=== PATIENT | male | born 2000 ===

== ENCOUNTER 2022-05-27 16:09 | Emergency (ER) | payer OTHER ==
[~2022-05-27] VITALS: Ht 167.6 cm; Wt 104.3 kg
[~2022-05-27 16:09] MED LIST: Amoxicillin500 MG PO; ERYT.5TO OD; HYDACE5325 PO
[2022-05-27] MEDS ORDERED: Cymbalta20 MG PO (16:35)
[2022-05-27] MEDS ORDERED: PANT20 PO (16:35)
[2022-05-27] MEDS ORDERED: Norco 7.5-3251 EACH PO (17:25)
== END 2022-05-27 17:30 | disposition home or self-care (01) ==
LOC: ER 16:09
DX: S82.852A Displaced trimalleolar fracture of left lower leg, initial encounter for closed fracture (principal); W18.31XA Fall on same level due to stepping on an object, initial encounter; Z79.899 Other long term (current) drug therapy
CPT/HCPCS: 36415; 73590; 73610; J1170; J1885; J2704; J7030

== ENCOUNTER 2022-06-07 12:27 | Day surgery (SDC) | payer OTHER ==
[~2022-06-07] VITALS: Ht 182.9 cm; Wt 111.2 kg
[~2022-06-07 12:27] MED LIST changes: +Cymbalta20 MG PO; +Norco 7.5-3251 EACH PO; +PANT20 PO
--- NOTE | 2022-06-07 14:41 | NUR ---
Patient to [facility] via wheelchair. Patient confirms NPO status and agrees with scheduled surgery. Pre-Op teaching done. Pt verbalizes understanding. Lungs clear T/O to Auscultation. Patient States Post-Procedure ride home has been arranged. Patient states he did not receive chlorhexidine scrubs from provider. No shower/scrubs completed.
--- NOTE | 2022-06-07 14:53 | NUR ---
RECEIVED REPORT FROM AUSTIN DUNBAR.
--- NOTE | 2022-06-07 19:40 | NUR ---
NOT ABLE TO WIGGLE TOES AND THEY DO FEEL NUMB HE STATES CAP REFILL WNL NOW RATING PAIN AT 4
--- NOTE | 2022-06-07 20:25 | NUR ---
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
== END 2022-06-07 22:47 | disposition home or self-care (01) ==
LOC: ORSCMMR 12:27 → ORD 15:15 → ORSCMMR 15:15
PROVIDERS: Orthopaedic Surgery
PROC: 0QSC04Z Reposition Left Lower Femur with Internal Fixation Device, Open Approach (ICD-10-PCS; principal; 2022-06-07 15:15)
PROC: 0QSH04Z Reposition Left Tibia with Internal Fixation Device, Open Approach (ICD-10-PCS; principal; 2022-06-07 15:15)
DX: S82.852A Displaced trimalleolar fracture of left lower leg, initial encounter for closed fracture (principal); K21.9 Gastro-esophageal reflux disease without esophagitis; E66.9 Obesity, unspecified; Z68.33 Body mass index [BMI] 33.0-33.9, adult; Z79.899 Other long term (current) drug therapy
CPT/HCPCS: A9270; C1713; C1769; C1776; J0690; J1100; J1170; J1885; J2250; J2405; J2704; J3010; J7120